=== PATIENT | female | born 1945 | race Caucasian/White ===

== ENCOUNTER 2016-03-20 15:32 | Observation (INO) | payer OTHER, MEDICARE ==
[~2016-03-20] VITALS: Ht 152.4 cm; Wt 78.4 kg
[2016-03-20] VITALS (7 sets, daily range): BP systolic 130–166; BP diastolic 57–88; PULSE 54–67; TEMP 97–97.5
[~2016-03-20 15:32] MED LIST: ALBUTEROL SULFAT3 M3 IH; ALBUTEROL0.83 MG/ML IH; ATROVENT I0.2 MG/1 M IH; CALCIUM 600MG+D1 TAB PO; FOSAMAX 70MG TA70 MG PO; LORTAB 5/500 501 TAB PO; MOBIC 7.5MG7.5 MG PO; MULTIPLE VITAMI1 CAP PO; MULTIPLE VITAMI1 TA5 PO; NEURONTIN600 MG/TAB PO; NORCO 325 MG-51 TAB PO; PROAIR HFA0.09 MG/AC IH; RT ADVAIR 228 DISKUS IH; TOPAMAX 25MG25 M1 PO; TRAVATAN Z 5 ML5 ML OU; ZOFRAN 4MG T4 MG/TAB PO
[2016-03-20] MEDS ORDERED: NORCO 325 MG-7.1 TAB PO (16:50)
[2016-03-20] MEDS ORDERED: RT ADVAIR 228 DISKUS IH (16:51)
[2016-03-20] MEDS ORDERED: VITAMIN D1000 IU PO (16:58)
== END 2016-03-20 20:30 | disposition home or self-care (01) ==
LOC: SDCO 15:32 → SURG 16:13 → SDCO 16:14 → SURG 16:15
DX: N20.2 Calculus of kidney with calculus of ureter (principal); I10 Essential (primary) hypertension; J44.9 Chronic obstructive pulmonary disease, unspecified; C50.919 Malignant neoplasm of unspecified site of unspecified female breast
CPT/HCPCS: C1769; C1894; C2617; G0379; J0690; J1100; J2405; J2704; J3010; J7120; Q9967

== ENCOUNTER 2016-03-23 17:24 | Observation (INO) | payer OTHER, MEDICARE ==
[~2016-03-23] VITALS: Ht 152.4 cm; Wt 119.1 kg
[~2016-03-23 17:24] MED LIST changes: +NORCO 325 MG-7.1 TAB PO; +VITAMIN D1000 IU PO
[2016-03-23 18:01] VITALS: BP 141/68; PULSE 67; TEMP 96.9
[2016-03-23 18:20] VITALS: BP 141/68; PULSE 67
[2016-03-23 18:35] VITALS: BP 144/75; PULSE 63
[2016-03-23 18:49] VITALS: BP 129/63; PULSE 63
[2016-03-23 21:28] VITALS: BP 117/64; PULSE 78; TEMP 98
[2016-03-24 02:09] VITALS: BP 131/67; PULSE 82; TEMP 98.2
[2016-03-24 04:22] VITALS: BP 130/72; PULSE 87; TEMP 97.5
[2016-03-24 09:28] VITALS: BP 141/65; PULSE 67; TEMP 97.9
[2016-03-24 14:39] VITALS: BP 151/73; PULSE 76; TEMP 98
== END 2016-03-24 18:30 | disposition home or self-care (01) ==
LOC: SURG 17:24
DX: T83.84XA Pain due to genitourinary prosthetic devices, implants and grafts, initial encounter (principal)
CPT/HCPCS: G0378; G0379; J2270; J7030

== ENCOUNTER 2016-03-28 11:29 | Day surgery (SDC) | payer OTHER, MEDICARE ==
[~2016-03-28] VITALS: Ht 152.4 cm; Wt 76.2 kg
[2016-03-28 12:41] VITALS: BP 124/72; PULSE 58; TEMP 97.6
[2016-03-28 15:12] VITALS: BP 114/47; PULSE 67
[2016-03-28 15:46] VITALS: TEMP 97.5
[2016-03-28 16:00] VITALS: BP 134/65; PULSE 53
[2016-03-28 16:15] VITALS: BP 127/71; PULSE 62
[2016-03-28 16:30] VITALS: BP 112/67; PULSE 73
== END 2016-03-28 16:52 | disposition home or self-care (01) ==
LOC: SDCO 11:29
DX: R10.11 Right upper quadrant pain (principal); I10 Essential (primary) hypertension; Z87.891 Personal history of nicotine dependence; Z85.3 Personal history of malignant neoplasm of breast
CPT/HCPCS: C1769; C2617; J0690; J2270; J2405; J2704; J3010; J7120; Q9967

== ENCOUNTER → 2017-09-11 | Outpatient (CLI) | payer OTHER, MEDICARE | LOC: COL.LAB 10:28 | DX: Z01.812 Encounter for preprocedural laboratory examination (principal) ==

== ENCOUNTER 2018-01-10 09:01 | Outpatient (CLI) | payer OTHER, MEDICARE ==
[2018-01-10] VITALS (7 sets, daily range): BP systolic 103–138; BP diastolic 52–83; PULSE 56–72
[~2018-01-10] VITALS: Ht 152.4 cm; Wt 75.5 kg
== END 2018-01-10 12:37 | disposition home or self-care (01) ==
LOC: COL.RAD 09:01
DX: M99.73 Connective tissue and disc stenosis of intervertebral foramina of lumbar region (principal); N20.0 Calculus of kidney; Z98.1 Arthrodesis status
CPT/HCPCS: Q9965